=== PATIENT | male | born 2000 | race Two or more races ===

== ENCOUNTER 2024-07-11 02:01 | Emergency (ER) | payer OTHER ==
[~2024-07-11] VITALS: Ht 165.1 cm; Wt 84.1 kg
[2024-07-11 02:15] VITALS: BP 120/80; PULSE 97; RESP 16; TEMP 98.1; O2SAT 100
== END 2024-07-11 04:29 | disposition left against medical advice (07) ==
LOC: EMS 02:01
DX: Z53.21 Procedure and treatment not carried out due to patient leaving prior to being seen by health care provider (principal)

== ENCOUNTER 2025-04-30 23:25 | Emergency (ER) | payer OTHER ==
[~2025-04-30] VITALS: Ht 167.6 cm; Wt 86.4 kg
[2025-04-30 23:46] VITALS: BP 142/86; PULSE 83; RESP 16; TEMP 98.8; O2SAT 96
== END 2025-05-01 01:14 | disposition left against medical advice (07) ==
LOC: EMS 23:27
DX: S91.312A Laceration without foreign body, left foot, initial encounter (principal); Z53.21 Procedure and treatment not carried out due to patient leaving prior to being seen by health care provider; W22.8XXA Striking against or struck by other objects, initial encounter; Y93.89 Activity, other specified; Y92.89 Other specified places as the place of occurrence of the external cause; Y99.8 Other external cause status
CPT/HCPCS: 99281; Z7502